=== PATIENT | female | born 1975 | race Caucasian/White ===

== ENCOUNTER 2020-12-29 05:10 | Observation (INO) | payer OTHER ==
[~2020-12-29] VITALS: Ht 165.1 cm; Wt 64.9 kg
[2020-12-29 05:21] VITALS: BP 122/82
--- NOTE | 2020-12-29 05:29 | NUR ---
AMBULATED TO ER BED 5
--- NOTE | 2020-12-29 05:30 | NUR ---
Note undone in EDM - 12/29/20 at 0713 by CHEMA DENIES BLOOD IN BOWELS. BOWEL SOUNDS PRESENT THROUGHOUT ALL QUADRANTS. PATIENT ALSO REPORTS THICK HEAVY VAGINAL BLEEDING WITH CLOTS X1 MONTH. PATIENT ALSO REPORTS OCCASIONAL "COTTAGE CHEESE LIKE" VAGINAL DISCHARGE, AND VAGINAL ITCHING. PATIENT DENIES USE OF CONTRACEPTIVES PATIENT ALSO REPORTS BURNING, AND FREQUENT URINATION, DENIES BLOOD IN URINE. PATIENT ALSO REPORTS 10/10 SHARP BILATERAL FLANK PAIN X1 MONTH. PATIENT ALSO REPORTS PULSATING HEADACHE 10/10 X1 MONTH, DENIES BLURRY VISION, LOC. PATIENT DENIES ANY TRAUMA/INJURY. PATIENT DENIES SOB OR CHEST PAIN. PATIENT IS AOX4, GCS 15, BREATHING EVEN AND UNLABORED. PATIENT LAYING IN BED, BED LOCKED IN LOWEST POSITION, HOB SLIGHTLY ELEVATED, X2 SIDERAILS UP FOR PATIENT SAFETY. PATIENT PROVIDED W A BLANKET AND EMESIS BAG. NAD NOTED, WILL CONTINUE TO MONITOR. AT BEDSIDE. PMH: ANEMIA NKA
--- NOTE | 2020-12-29 05:30 | NUR ---
45 YO/F BIB SELF ACCOMPANIED BY W C/O NAUSEA X1 MONTH AND VOMITING X1 DAY. DENIES BLOOD IN VOMIT. PATIENT ALSO REPORTS R LOWER ABDOMINAL/PELVIC CRAMPING PAIN X1 MONTH 8/10. PATIENT ALSO REPORTS INTERMITTENT DIARRHEA ON SOME DAYS X1 MONTH, DENIES BLOOD IN BOWELS. BOWEL SOUNDS PRESENT THROUGHOUT ALL QUADRANTS. PATIENT ALSO REPORTS THICK HEAVY VAGINAL BLEEDING WITH CLOTS X1 MONTH. PATIENT ALSO REPORTS OCCASIONAL "COTTAGE CHEESE LIKE" VAGINAL DISCHARGE, AND VAGINAL ITCHING. PATIENT DENIES USE OF CONTRACEPTIVES PATIENT ALSO REPORTS BURNING, AND FREQUENT URINATION, DENIES BLOOD IN URINE. PATIENT ALSO REPORTS 10/10 SHARP BILATERAL FLANK PAIN X1 MONTH. PATIENT ALSO REPORTS PULSATING HEADACHE 10/10 X1 MONTH, DENIES BLURRY VISION, LOC. PATIENT DENIES ANY TRAUMA/INJURY. PATIENT DENIES SOB OR CHEST PAIN. PATIENT IS AOX4, GCS 15, BREATHING EVEN AND UNLABORED. PATIENT LAYING IN BED, BED LOCKED IN LOWEST POSITION, HOB SLIGHTLY ELEVATED, X2 SIDERAILS UP FOR PATIENT SAFETY. PATIENT PROVIDED W A BLANKET AND EMESIS BAG. NAD NOTED, WILL CONTINUE TO MONITOR. AT BEDSIDE. PMH: ANEMIA NKA
[2020-12-29 06:02] LABS: APPEARANCE,URINE CLOUDY (CLEAR); BILIRUBIN,URINE NEGATIVE (NEGATIVE); BLOOD, URINE 3+ (NEGATIVE); COLOR,URINE YELLOW (YELLOW); LEUKOCYTE ESTERASE ,URINE NEGATIVE (NEGATIVE); NITRITE, URINE NEGATIVE (NEGATIVE); PH,URINE >=9.0 (5.0-9.0); UGLUCOSE NEGATIVE (NEGATIVE)
[2020-12-29 06:03] LABS: BASOPHILS % (AUTO) 0.6 % (0.0-2.0); EOSINOPHILS % (AUTO) 0.8 % (0.0-4.0); HEMATOCRIT 20.5 % (36-48); LYMPHOCYTES # (AUTO) 0.6 K/uL (2.5-16.5); LYMPHOCYTES % (AUTO) 14.8 % (20.5-51.1); MEAN CORPUSCULAR HEMOGLOBIN 24 pg (27-31); MEAN CORPUSCULAR HGB CONC 32 g/dL (33-37); MEAN CORPUSCULAR VOLUME 76.3 fL (80-94); MONOCYTES # (AUTO) 0.4 K/uL (0.8-1.0); MONOCYTES % (AUTO) 8.6 % (1.7-9.3); NEUTROPHILS # (AUTO) 3.2 K/uL (1.8-7.7); NEUTROPHILS % (AUTO) 75.2 % (42.2-75.2); PLATELET COUNT (AUTO) 309 K/uL (140-450); RED BLOOD CELL COUNT(AUTO) 2.69 MIL/uL (4.20-5.40); RED CELL DISTRIBUTION WIDTH 19.4 % (11.6-13.7); WHITE BLOOD COUNT (AUTO) 4.2 K/uL (4.8-10.8)
[2020-12-29 06:10] LABS: HEMOGLOBIN 6.5 g/dL (12.0-16.0)
[2020-12-29 06:18] LABS: RBC,URINE TOO NUMEROUS TO COUN /HPF (0-5); WBC,URINE 0-5 /HPF (0-5)
--- NOTE | 2020-12-29 06:43 | NUR ---
ULTRASOUND AT BEDSIDE.
[2020-12-29] MEDS ORDERED: ACETAMINOPHEN 325 MG TAB PO PRN (06:45)
[2020-12-29] MEDS ORDERED: ONDANSETRON 4 MG/2 ML VIAL IVP PRN (06:45)
[2020-12-29] MEDS ORDERED: LORazepam 2 MG/ML VIAL IVP PRN (06:45)
[2020-12-29 06:49] LABS: ALBUMIN 3.8 g/dL (3.4-5.0); CARBON DIOXIDE 23.6 mmol/L (21-32); CREATININE 0.7 mg/dL (0.6-1.3); POTASSIUM 3.6 mmol/L (3.5-5.1); THYROID STIMULATING HORMONE 10.61 uIU/mL (0.34-3.74); TOTAL BILIRUBIN 0.2 mg/dL (0.0-1.0)
[2020-12-29] MEDS: NACL 0.9% 1,000 ML IV SCH ×2 (07:05→22:46)
[2020-12-29] MEDS: HYDROcodone/APAP 5/325 MG 1 TAB TAB PO PRN ×2 (07:06→19:28)
--- NOTE | 2020-12-29 07:13 | NUR ---
Pt report given to AKILA MARIEE. Transfer of care at this time.
--- NOTE | 2020-12-29 07:14 | NUR ---
Report received from AKILA Ward for continuity of care.
--- NOTE | 2020-12-29 07:17 | NUR ---
EMT at bedside for EKG.
--- NOTE | 2020-12-29 07:45 | NUR ---
Consent signed per patient agreeing to administration of blood. Blood has been type and crossmatched. Blood sent from blood bank. Information on unit of blood checked against patient wristband at bedside by two nurses. All information matches. Patient or responsible constitution party informed of potential complications associated with blood transfusion. Informed of possible transfusion reaction symptoms. Aware of need to notify nurse at once of itching, shortness of breath, flushing, feeling of impending doom, or other symptoms not previously present. Vital signs taken within 5 minutes prior to initiation of transfusion. RN will remain with patient for first 15 minutes of transfusion at which time vital signs will be re-assessed.
--- NOTE | 2020-12-29 08:59 | NUR ---
Patient tolerating blood transfusion well. VSS. AAOx4. Patient currently speaking with family member on the phone. Semi-fowlers. Denies pain. Safety measures in place, patient on monitors. Will continue to monitor patient.
--- NOTE | 2020-12-29 10:47 | NUR ---
Patient ambulated to the bathroom
--- NOTE | 2020-12-29 11:02 | NUR ---
PATIENT BACK IN BED. ATTACHED PATIENT ON THE MONITORS. SAFETY MEASURES PUT IN PLACE. WILL CONTINUE TO MONITOR PATIENT.
--- NOTE | 2020-12-29 12:02 | NUR ---
Patient appears to be resting comfortably in bed. Vital Signs within normal limits. Respirations even and unlabored. Safety measures in place. Will continue to monitor patient.
--- NOTE | 2020-12-29 13:27 | NUR ---
Patient appears to be resting comfortably in bed. Vital Signs within normal limits. Respirations even and unlabored. Safety measures in place. Will continue to monitor patient.
--- NOTE | 2020-12-29 14:23 | NUR ---
Patient appears to be resting comfortably in bed. Vital Signs within normal limits. Respirations even and unlabored. Safety measures in place. Will continue to monitor patient.
--- NOTE | 2020-12-29 14:27 | NUR ---
ATTEMPTED TO CALL FOR PATIENT REPORT--ANSWERED RN AT LUNCH, SAID TO CALL BACK IN 15MINS.
[2020-12-29 14:29] LABS: PROTHROMBIN TIME 9.9 secs (10.8-13.4)
--- NOTE | 2020-12-29 14:46 | NUR ---
Patient will be admitted to care of Red HOWE[facility]. Admited to Telemetry. Will go to room 119a. Belongings list completed. Report to AKILA Srinivasan.
--- NOTE | 2020-12-29 15:33 | NUR ---
RECEIVED REPORT FROM ER NURSE. ADMITTED 45Y/O FEMALE FROM HOME. WITH CHIEF COMPLAINT OF VAGINAL BLEEDING, ABD CRAMPS, N/V/D. ADMITTING DX OF ANEMIA. HX ANEMIA. PT IS AOX4, ABLE TO MAKE NEEDS KNOWN. NO C/O PAIN AT THIS TIME NO SOB ON ROOM AIR, NO N/V/D. AMBULATORY. B/B CONTINENT. IV RAC 20G RUNNING IVF. SAFETY PRECAUTIONS IN PLACE. WILL CONTINUE TO MONITOR
[2020-12-29 16:05] LABS: BASOPHILS % (AUTO) 1.1 % (0.0-2.0); EOSINOPHILS # (AUTO) 0.1 K/uL (0-0.4); EOSINOPHILS % (AUTO) 3.4 % (0.0-4.0); HEMOGLOBIN 7.4 g/dL (12.0-16.0); LYMPHOCYTES # (AUTO) 1.1 K/uL (2.5-16.5); LYMPHOCYTES % (AUTO) 33.4 % (20.5-51.1); MEAN CORPUSCULAR HEMOGLOBIN 25 pg (27-31); MEAN CORPUSCULAR HGB CONC 32 g/dL (33-37); MEAN CORPUSCULAR VOLUME 78.8 fL (80-94); MONOCYTES # (AUTO) 0.4 K/uL (0.8-1.0); MONOCYTES % (AUTO) 10.8 % (1.7-9.3); NEUTROPHILS # (AUTO) 1.7 K/uL (1.8-7.7); NEUTROPHILS % (AUTO) 51.3 % (42.2-75.2); PLATELET COUNT (AUTO) 266 K/uL (140-450); RED BLOOD CELL COUNT(AUTO) 2.92 MIL/uL (4.20-5.40); RED CELL DISTRIBUTION WIDTH 18.2 % (11.6-13.7); WHITE BLOOD COUNT (AUTO) 3.3 K/uL (4.8-10.8)
[2020-12-29 16:54] VITALS: BP 97/59
--- NOTE | 2020-12-29 17:30 | NUR ---
FAMILY AT BEDSIDE. SEEN BY DR MILLS
--- NOTE | 2020-12-29 18:45 | NUR ---
STARTED BLOOD TRANSFUSION
--- NOTE | 2020-12-29 19:30 | NUR ---
RECEIVED PT AWAKE TALKING TO AT BEDSIDE, PRESENTLY GETTING 2ND UNIT OF PRBC, VITAL SIGNS STABLE, CONTINUE TO MONITOR FOR REACTION, COMPLAINING OF BACK PAIN, MEDICATED PRN WITH NORCO, PT STATED NO ACTIVE BLEEDING BUT MINIMAL SPOTTING ONLY, ALL NEEDS ATTENDED, PLAN OF CARE DISCUSSED, CALL LIGHT WITHIN REACH.
[2020-12-29 20:00] VITALS: BP 102/69
--- NOTE | 2020-12-29 22:00 | NUR ---
BLOOD TRANSFUSION DONE WITH NO REACTION NOTED, VITAL SIGNS TAKEN, BP ON THE LOW SIDE BUT STABLE, RESUMED IVF OF NS AT 70ML/H, MONITORED CLOSELY.
[2020-12-30] VITALS: BP 90/59
--- NOTE | 2020-12-30 | NUR ---
PT SLEEPING, EASILY AROUSABLE, VITAL SIGNS STABLE, DENIES ANY PAIN, IVF INFUSING WELL, CONTINUE TO MONITOR CLOSELY.
[2020-12-30] MEDS: HYDROcodone/APAP 5/325 MG 1 TAB TAB PO PRN (03:46)
--- NOTE | 2020-12-30 03:50 | NUR ---
PT AWAKE COMPLAINING OF BACK PAIN, NO N/V, VITAL SIGNS STABLE, MEDICATED PRN WITH NORCO, MONITORED CLOSELY.
[2020-12-30 04:00] VITALS: BP 105/56
[2020-12-30 05:13] LABS: BASOPHILS % (AUTO) 0.9 % (0.0-2.0); EOSINOPHILS # (AUTO) 0.2 K/uL (0-0.4); HEMATOCRIT 25.7 % (36-48); HEMOGLOBIN 8.4 g/dL (12.0-16.0); LYMPHOCYTES # (AUTO) 1.5 K/uL (2.5-16.5); LYMPHOCYTES % (AUTO) 33.3 % (20.5-51.1); MEAN CORPUSCULAR HEMOGLOBIN 26 pg (27-31); MEAN CORPUSCULAR HGB CONC 33 g/dL (33-37); MEAN CORPUSCULAR VOLUME 80.1 fL (80-94); MONOCYTES # (AUTO) 0.4 K/uL (0.8-1.0); MONOCYTES % (AUTO) 9.9 % (1.7-9.3); NEUTROPHILS # (AUTO) 2.3 K/uL (1.8-7.7); NEUTROPHILS % (AUTO) 51.9 % (42.2-75.2); PLATELET COUNT (AUTO) 234 K/uL (140-450); RED BLOOD CELL COUNT(AUTO) 3.21 MIL/uL (4.20-5.40); RED CELL DISTRIBUTION WIDTH 18.6 % (11.6-13.7); WHITE BLOOD COUNT (AUTO) 4.5 K/uL (4.8-10.8)
--- NOTE | 2020-12-30 05:20 | NUR ---
PT AWAKE, AMBULATED TO BR, VOIDED FREELY, VERBALIZED MINIMAL SPOTTING NOTED.
[2020-12-30 05:38] LABS: ANION GAP 10.1 (8-16); CARBON DIOXIDE 24.6 mmol/L (21-32); CREATININE 0.8 mg/dL (0.6-1.3); POTASSIUM 3.7 mmol/L (3.5-5.1)
--- NOTE | 2020-12-30 07:15 | NUR ---
PT AWAKE, NO RESP DISTRESS NOTED, REPORT GIVEN TO AKILA CARRANZA FOR CONTINUITY OF CARE.
--- NOTE | 2020-12-30 07:25 | NUR ---
PT AWAKE, CONFUSED, NO RESP DISTRESS NOTED, REPORT GIVEN TO AKILA HARRIS FOR CONTINUITY OF CARE. Addendum: 12/30/20 at 0731 by Richard Cuadra RN CHARTED ON WRONG PT.
--- NOTE | 2020-12-30 07:30 | NUR ---
RECEIVED REPORT FROM NIGHTSHIFT NURSE. PT RESTING IN BED. ABLE TO MAKE NEEDS KNOWN. RESPIRATIONS EVEN AND UNLABORED WITH NO SOB OR RESPIRATORY DISTRESS. SKIN WARM AND DRY TO TOUCH. SAFETY MEASURES IN PLACE. WILL CONTINUE TO MONITOR
[2020-12-30 08:00] VITALS: BP 96/65
[2020-12-30] MEDS ORDERED: MEDR10TA PO (09:06)
[2020-12-30] MEDS ORDERED: FERR325E14 PO (09:06)
--- NOTE | 2020-12-30 09:14 | NUR ---
PATIENT HAS BEEN SCREENED AND CATEGORIZED LOW NUTRITION RISK. PATIENT WILL BE SEEN WITHIN 7 DAYS OF ADMISSION. 01/04/[address]
[2020-12-30] MEDS ORDERED: MAGNESIUM HYDROXIDE 2400 MG/30 ML UDC PO SCH (09:30)
--- NOTE | 2020-12-30 09:51 | NUR ---
ADMINISTERED SCHED MED PRESCRIBED PER MD ORDER. PT TOLERATED WELL. PT HAS MILD HEADACHE. PRN TYLENOL ADMINISTERED PER MD ORDER. PT TOLERATED WELL. MEDICATION EDUCATION PERFORMED. PT VERBALIZED UNDERSTANDING. SAFETY MEASURES IN PLACE. WILL CONTINUE TO MONITOR
--- NOTE | 2020-12-30 11:21 | NUR ---
ADMINISTERED SCHED MED PRESCRIBED PER MD ORDER. PT TOLERATED WELL. MEDICATION EDUCATION PERFORMED. PT VERBALIZED UNDERSTANDING. SAFETY MEASURES IN PLACE. WILL CONTINUE TO MONITOR
[2020-12-30] MEDS: NACL 0.9% 1,000 ML IV SCH (11:36)
[2020-12-30 12:00] VITALS: BP 104/70
--- NOTE | 2020-12-30 12:00 | NUR ---
PT AWARE OF DISCHARGE AND WOULD LIKE TO LEAVE SHORTLY AFTER LUNCH
[2020-12-30 12:11] VITALS: BP 96/65
--- NOTE | 2020-12-30 13:20 | NUR ---
WENT OVER DISCHARGE INSTRUCTIONS WITH PATIENT. PT SIGNED APPROPRIATE DOCUMENTS. EDUCATED PT TO VISIT ED FOR ANY SIGNS OF DISTRESS. PT VERBALIZED UNDERSTANDING. REMOVED INTACT IV CANNULA. PT TOLERATED WELL. PT CHANGED INTO HER OWN CLOTHES AND GATHERED HER BELONGINGS. REMOVED TELE MONITOR AND RETURNED BACK TO SERVICE CENTER ASSISTANT. REMOVED ID BAND. PT WHEELED TO HER TO GO HOME. PT IS STABLE
--- NOTE | 2020-12-30 14:18 | NUR ---
DC PLANNING: CM SPOKE WITH PATIENT AT BEDSIDE. STATES SHE HAS A PCP BUT HASN'T SEEN HIM SINCE 2019. CM ENCOURAGED PATIENT TO GET RE-ESTABLISHED WITH HER PCP GIVEN HER CURRENT HEALTH ISSUES. PATIENT LIVES IN A SINGLE STORY HOUSE WITH HER AND ONE CHILD AND ANOTHER FAMILY NOT RELATED TO HER. INDEPENDENT IN ALL ACTIVITIES, NO PRIOR HOME HEALTH OR DME. NO DC NEED IDENTIFIED, CM WILL CONTINUE TO FOLLOW.
== END 2020-12-30 13:15 | disposition home or self-care (01) ==
LOC: MED 05:10 → MTU 06:47
PROVIDERS: ADMIT Internal Medicine; ATTEND Internal Medicine
DX: D64.9 Anemia, unspecified (principal); N92.4 Excessive bleeding in the premenopausal period; R42 Dizziness and giddiness; R06.02 Shortness of breath
CPT/HCPCS: 36415; 36430; 76830; 80048; 80053; 81001; 83735; 84443; 84703; 85025; 85610; 85730; 86886; 86900; 86901; 86920; 87081; 87086; 93005; 96361; 96374; 99285; G0378; J2405; P9016